=== PATIENT | female | born 2000 | race Two or more races ===

== ENCOUNTER 2025-02-13 18:08 | Outpatient (REF) | payer MEDICAID, SELFPAY ==
--- OUTSIDE RECORDS SUMMARY | 2025-02-13 14:45 | XMS_ITS | Encounter Summary ---
Author Organization [employer] Address [address] [place] [address] Care Team Providers Care Regrind Mill Operator Name Role Phone GianlucaTanishaEmilie CHW Unavailable Unavailab Kasia Huynh NP Primary Care Provider [phone] Reason for Referral * Consultation (Routine) - Authorized Specialty Diagnoses / Procedures Referred By Contac t Referred To Contact Nutrition Diagnoses Obesity, Class III, BMI 40-49.9 (morbid obesity) (HCC) Kasia Loja NP [address] [place] [address] Phone: tel: fax: Referral ID Status Reason Start Date Expiration Date Visits Requested Visits Authorized [id number] Authorized Consult and Treat 02/13/2025 02/13/2026 1 1 Encounter Details Date Type Department Care Team (Late st Contact Info) Description 02/13/2025 2:45 PM EST Office Visit [facility] [address] [place] [address] [phone] Kasia Loja NP [address] [place] [address] [phone] Healthcare maintenance (Primary Dx); Diabetes mellitus screening; Obesity, Class III, BMI 40-49.9 (morbid obesity) (HCC); Encounter for immunization; Routine screening for STI (sexually transmitted infection); Sore throat Social History Tobacco Use Types Packs/Day Years Used Date Smoking Tobacco: Never Passive Smoke Exposure: Never Smokeless Tobacco: Never Alcohol Use Standard Drinks/Week Comments Never 0 (1 standard drink = 0.6 oz pur e alcohol) Alcohol Answer Date Recorded How often do you have a drink containing alcohol ? 0 04/04/2024 How many drinks containing a lcohol do you have on a typical day when you are drinking? 0 04/04/2024 How often do you have six or more drinks on one occasion? 0 04/04/2024 Depression Answer Date Recorded Patient Health Questionnaire-9 Score 0 02/13/2025 Patient Health Questionnaire-9 Score 0 02/13/2025 Last PHQ-9: Questionnaire Data Not on file 1 04/15/2024 Housing Stability Answer Date Recorded What is your housing situation today? I have dena armstrong 04/04/[address] you li ve. Do you have problems with any of the following? None of the above 04/04/2024 Food Insecurity Answer Date Recorded Within the past 12 months, y ou worried that your food would run out before you got money to buy more: Never True 02/13/2025 Within the past 12 months,th e food you bought just didn't last and you didn't have enough money to get more: Never True Transportation Answer Date Recorded In the past 12 months, has l ack of transportation kept you from medical appts, meetings, work or from getting things needed for daily living? No 04/04/2024 Intimate Partner Violence Answer Date R ecorded Within the last year, have y ou been afraid of your partner or ex-partner? 2 04/04/2024 Within the last year, have y ou been humiliated or emotionally abused in other ways by your partner or ex-partner? 2 Within the last year, have y ou been kicked, hit, slapped, or otherwise physically hurt by your partner or ex-partner? 2 04/04/2024 Within the last year, have y ou been raped or forced to have any kind of sexual activity by your partner or ex-partner? 2 04/04/2024 Utilities Answer Date Recorded In the past 12 months, has t he electric, gas, oil or water company threatened to shut off services in your home? No 02/13/2025 Depression Answer Date Recorded Patient Health Questionnaire-2 Score 0 02/13/2025 Internet Access Answer Date Recorded Internet Access Q1 Yes 04/04/2024 Internet Access Q2 Not on file 04/04/2024 Education Answer Date Recorded What is the highest level of school you have completed or the highest degree you have received? 8th grade 04/04/2024 Comments Unknown Sex and Gender Information Value Date Recorded Sex Assigned at Female 02/01/2024 8:18 AM EST Legal Sex Female 6:59 PM EDT Gender Identity Female 07/01/2023 6:59 PM EDT Sexual Orientation Straight 07/01/2023 6: 59 PM EDT Occupation Industry Job Start Date Job End Date Not on file Not on file Not on file Not on file documented as of this encounter Last Filed Vital Signs Vital Sign Reading Time Taken Comments Blood Pressure 140/88 02/13/2025 3:10 PM EST Pulse 92 02/13/2025 3:10 PM EST Temperature 37 C (98.6 F) 02/13/2025 3:10 PM EST Respiratory Rate 18 02/13/2025 3:10 PM EST Oxygen Saturation 99% 02/13/2025 3:10 PM EST Inhaled Oxygen Concentration - - Weight 110 kg (242 lb 6 oz) 02/13/2025 3:[address] Height 156.3 cm (5' 1.52 ) 02/13/2025 3:10 PM ES T Body Mass Index 45.03 02/13/2025 3:10 PM EST documented in this encounter Functional Status * Over the past 2 weeks, how often have you been bothered by any of the following problems? Question Answer Date of Assessment Author Patient Health Questionnaire -2 Score 0 02/13/2025 3:13 PM EST Jodie Laws MA * Little interest or pleasure in doing things Answer Date of Assessment Author Not at all 02/13/2025 3:13 PM EST Jodie Salinas MA * Feeling down, depressed, or hopeless Answer Date of Assessment Author Not at all 02/13/2025 3:13 PM EST Jodie Salinas MA * Trouble falling or staying asleep, or sleeping too much Answer Date of Assessment Author Not at all 02/13/2025 3:13 PM EST Jodie Salinas MA * Feeling tired or having little energy Answer Date of Assessment Author Not at all 02/13/2025 3:13 PM EST Jodie Salinas MA * Poor appetite or overeating Answer Date of Assessment Author Not at all 02/13/2025 3:13 PM Jodie Bonner MA * Feeling bad about yourself - or that you are a failure or have let yourself or your family down Answer Date of Assessment Author Not at all 02/13/2025 3:13 PM Jodie Bonner MA * Trouble concentrating on things, such as reading the newspaper or watching television Answer Date of Assessment Author Not at all 02/13/2025 3:13 PM Jodie Bonner MA * Moving or speaking so slowly that other people could have noticed? Or the opposite - being so fidgety or restless that you have been moving around a lot more than usual. Answer Date of Assessment Author Not at all 02/13/2025 3:13 PM Jodie Bonner MA * Thoughts that you would be better off or hurting yourself in some way Answer Date of Assessment Author Not at all 02/13/2025 3:13 PM Jodie Bonner MA * Patient Health Questionnaire-9 Score Answer Date of Assessment Author 0 02/13/2025 3:13 PM Jodie Bonner MA * Over the last 2 weeks, how often have you been bothered by any of the following problems? Question Answer Date of Assessment Author Feeling nervous, anxious, or on edge 0 02/13/2025 3:13 PM Jodie Meneses MA Not being able to stop or control worrying 0 02/13/2025 3:13 PM Jodie Meneses MA Worrying too much about different things 0 02/13/2025 3:13 PM Jodie Meneses MA Trouble relaxing 0 02/13/2025 3:13 PM Jodie Jimenez MA Being so restless that it is hard to sit still 0 02/13/2025 3:13 PM Jodie Meneses MA Becoming easily annoyed or irritable 0 02/13/2025 3:13 PM Jodie Meneses MA Feeling afraid as if somethi ng awful might happen 0 02/13/2025 3:13 PM EST Jodie Laws MA KIAN-7 Total Score 0 02/13/2025 3:13 PM EST Jodie Laws MA documented as of this encounter Miscellaneous Notes * Assessment & Plan Note - Kasia Loja NP - 02/13/2025 2:45 PM ESTAssociated Problem(s): Obesity, Class III, BMI 40-49.9 (morbid obesity) (HCC) Currently seeing engineering illustrator at [facility] [place]. Placed referral for nutrition here due to proximity. Orders: Referral to Nutrition Therapy; Future documented in this encounter Plan of Treatment Scheduled Orders Name Type Priority Associated Diagnoses Orde r Schedule Chlamydia/N. Gonorrhoeae, PCR, Urine Lab Routine Routine screening for STI (sexually transmitted infection) Ordered: 02/13/2025 Hepatitis B Core Antibody, Total Lab Routine Routine screening for STI (sexually transmitted infection) Expected: 02/13/2025 (Approximate), Expires: 02/13/2026 Hepatitis B Surface Antibody, Qualitative Lab Routine Routine screening for STI (sexually transmitted infection) Expected: 02/13/2025 (Approximate), Expires: 02/13/2026 Hepatitis B surface antigen, EIA Lab Routine Routine screening for STI (sexually transmitted infection) Expected: 02/13/2025 (Approximate), Expires: 02/13/2026 Hepatitis C Antibody with Reflex to HCV, RNA, Quantitative, Real-Time PCR Lab Routine Routine screening for STI (sexually transmitted infection) Expected: 02/13/2025 (Approximate), Expires: 02/13/2026 HIV-1/2 Antigen and Antibodies, Fourth Generation, with Reflexes Lab Routine Routine screening for STI (sexually transmitted infection) Expected: 02/13/2025 (Approximate), Expires: 02/13/2026 Syphilis Screen Lab Routine Routine screening for STI (sexually transmitted infection) Expected: 02/13/2025 (Approximate), Expires: 02/13/2026 Lipid Panel, Standard Lab Routine Healthcare maintenance Expected: 02/13/2025 (Approximate), Expires: 02/13/2026 Comprehensive Metabolic Panel Lab Routine Healthcare maintenance Expected: 02/13/2025 (Approximate), Expires: 02/13/2026 CBC auto differential Lab Routine Healthcare maintenance Expected: 02/13/2025 (Approximate), Expires: 02/13/2026 TSH W/Reflex to FT4 Lab Routine Healthcare maintenance Expected: 02/13/2025 (Approximate), Expires: 02/13/2026 Hemoglobin A1c Lab Routine Diabetes mellitus screening Expected: 02/13/2025 (Approximate), Expires: 02/13/2026 Scheduled Referrals Name Type Priority Associated Diagnoses Orde r Schedule Referral to Nutrition Therapy Outpatient Referral Routine Obesity, Class III, BMI 40-49.9 (morbid obesity) ([facility]) Expected: 02/13/2025 (Approximate), Expires: 02/13/2026 documented as of this encounter Procedures Procedure Name Priority Date/Time Associated Diagnosis Comments POC BANUELOS ID NOW STREP A Routine 02/13/2025 4:04 PM EST Sore throat documented in this encounter Results * POCT Rapid Strep A BANUELOS ID NOW (02/13/2025 4:04 PM EST) Pathologist [facility] Rapid Strep A Screen Negative Negative, None Detected QC Media Lot # [id number] Lot# Expiration Date , Swab 02/13/2025 4:04 PM EST Ksaia Loja NP POINT OF CARE TEST ENTER/EDIT O RDERABLES Final Result documented in this encounter Visit Diagnoses Diagnosis Healthcare maintenance- Primary Diabetes mellitus screening Screening for diabetes mellitus Obesity, Class III, BMI 40-49.9 (morbid obesity) (HCC) Encounter for immunization Routine screening for STI (sexually transmitted infection) Screening examination for venereal disease Sore throat Acute pharyngitis documented in this encounter Additional Health Concerns Assessment Noted Time PHQ-9 Depression Total Score: 0 02/14/20 25 3:13 PM EST documented as of this encounter Care Teams Regrind Mill Operator Relationship Specialty Start Date End Date Kasia Loja, DRAKE [address] [place] [id number] PCP - General Nurse Practitioner 02/13/25 Emilie Hough, CHW Community Health Worker Community Health Worker 04/04/24 documented as of this encounter
--- OUTSIDE RECORDS SUMMARY | 2025-02-13 18:12 | XMS_ITS | Encounter Summary ---
Author Organization [facility] Address [address] [place] [address] Care Team Providers Care Heating Technician Name Role Phone [facility] Primary Care Provider Encounter Details Date Type Department Care Team (Late st Contact Info) Description 04/05/2024 Community Orders [facility] EpicCare Link [address] [place] [address] Nichol Tee MD [address] [place] [address] with uncertain viability, fetus 1 (Primary Dx); Encounter for anatomic survey Social History Tobacco Use Types Packs/Day Years Used Date Smoking Tobacco: Never Smokeless Tobacco: Never Alcohol Use Standard Drinks/Week Comments Never 0 (1 standard drink = 0.6 oz pur e alcohol) Comments No Sex and Gender Information Value Date Recorded Sex Assigned at Female 06/23/2023 12:13 PM EDT Legal Sex Female 8:23 AM EDT Gender Identity Not on file Sexual Orientation Not on file documented as of this encounter Plan of Treatment Not on file documented as of this encounter Results * Due to [place] state law, this organization might not be sharing negative HIV tests. * US OB MFM (07/12/2024 3:52 PM EDT) Anatomical Region Laterality Modality Body, Pelvis N/A Ultrasound 07/12/2024 3:48 PM EDT Impressions 07/12/2024 4:13 PM EDT The patient was referred for an anatomic survey. [employer] services was used for today's visit given the language barrier (278608). IMPRESSION: Transabdominal ultrasound performed. Viable, nava intrauterine gestation. Size consistent with dates. Normal placentation without previa. Long, closed cervix without funneling. All views required for targeted exam using the AIUM protocol attempted. Views obtained are documented above. If views were not obtained, it was due to position, gestational age, or other technical reasons unless otherwise noted. Anatomic survey within normal limits, no structural anomalies are detected. Normal-appearing uterus and adnexa. COUNSELING We reviewed the limitations of ultrasound in the detection of structural anomalies; some anomalies may be missed and others may not present until later in gestation. We also reviewed its limitations in the detection of aneuploidy and the availability of amniocentesis, which she declined. Thank you for involving us in the care of this patient. Please do not hesitate to contact us with any questions or concerns. Narrative 07/12/2024 4:13 PM EDT OBSTETRICS REPORT (Signed Final 07/12/2024 04:13 pm) PATIENT INFO: ID #: [id number] : [birth year] (23 yrs)(F) Name: GILMER FRANCO Visit Date: 07/12/2024 03:48 pm MANUEL PERFORMED BY: Attending: Eliazar Alejandro MD Performed By: Luisa Lomax Referred By: NICHOL TEE Location: [facility] Diagnosis and O SERVICE(S) PROVIDED: Targeted exam 42839 INDICATIONS: 20 weeks gestation of Z3A.20 Obesity in , 2nd tri O99.212 Screening for malformations Z36.3 GESTATIONAL AGE: LMP: 26w 0d Date: 01/12/24 NAJMA: 10/18/24 U/S Today: 20w 3d NAJMA: 11/26/24 Best: 20w 1d Det. By: U/S Zakia Oscar L NAJMA: 11/28/24 (04/06/24) EVALUATION: Num Of Fetuses: 1 Heart Rate(bpm): 158 Cardiac Activity: Seen Presentation: Cephalic Placenta: Anterior No Previa P. Cord Insertion: Normal Amniotic Fluid HUMPHREY FV: Normal Largest Pocket(cm) 4.94 BIOMETRY: BPD: 47.6 mm G.Age: 20w 3d HC: 175.3 mm G.Age: 20w 0d AC: 150.1 mm G.Age: 20w 2d FL: 34.3 mm G.Age: 20w 6d HUM: 35.1 mm G.Age: 22w 0d CER: 19.1 mm G.Age: 18w 4d NFT: 3.89 mm LV: 7.1 mm CM: 3.2 mm CI: 74.31 % 70 - 86 FL/HC: 19.6 % 16.8 - 19.8 HC/AC: 1.17 1.09 - 1.39 FL/BPD: 72.1 % FL/AC: 22.9 % 20 - 24 Est. FW: 355 gm 0 lb 13 oz TARGETED ANATOMY: Central Nervous System Calvarium/Cranial V.: Normal Cavum: Normal Lateral Ventricles: Normal Choroid Plexus: Normal Cereb./Vermis: Normal Cisterna Magna: Normal Midline Falx: Normal Spine Cervical: Normal Thoracic: Normal Lumbar: Normal Sacral: Normal Shape/Curvature: Normal Head/Neck Face: Normal Lips: Normal Neck: Normal Nuchal Fold: Normal Nasal Bone: Normal Profile: Normal Orbits/Eyes: Normal Mandible: Normal Maxilla: Normal Thorax 4 Chamber View: Normal Cardiac Activity: Observed Cardiac Situs: Normal Rt Outflow Tract: Normal Lt Outflow Tract: Normal Aortic Arch: Normal Ductal Arch: Normal SVC: Normal Diaphragm: Normal 3 Vessel View: Normal 3 V Trachea View: Normal IVC: Normal Abdomen Ventral Wall: Normal Situs: Normal Stomach: Normal Liver: Normal Lt Kidney: Normal Rt Kidney: Normal Bladder: Normal Bowel: Normal Extremities Lt Humerus: Normal Rt Humerus: Normal Lt Forearm: Normal Rt Forearm: Normal Lt Hand: Normal Rt Hand: Normal Lt Femur: Normal Rt Femur: Normal Lt Lower Leg: Normal Rt Lower Leg: Normal Lt Foot: Normal Rt Foot: Normal Other Umbilical Cord: Normal 3-vessel Genitalia: Normal CERVIX UTERUS ADNEXA: Cervix Length: 4.2 cm. Cul De Sac No fluid noted Adnexa Both adnexae appeared unremarkable. Comment Uterus and adnexa appear unremarkable. Eliazar Alejandro MD Electronically Signed Final Report 07/12/2024 04:13 pm Procedure Note Eliazar Alejandro MD - 07/12/2024 OBSTETRICS REPORT (Signed Final 07/12/2024 04:13 pm) PATIENT INFO: ID #: [id number] : [birth year] (23 yrs)(F) Name: GILMER FRANCO Visit Date: 07/12/2024 03:48 pm JACKSON PERFORMED BY: Attending: Eliazar Alejandro MD Performed By: Luisa Lomax Referred By: NICHOL TEE Location: [facility] Diagnosis and O SERVICE(S) PROVIDED: Targeted exam 13281 INDICATIONS: 20 weeks gestation of Z3A.20 Obesity in , 2nd tri O99.212 Screening for malformations Z36.3 GESTATIONAL AGE: LMP: 26w 0d Date: 01/12/24 NAJMA: 10/18/24 U/S Today: 20w 3d NAJMA: 11/26/24 Best: 20w 1d Det. By: U/Anival Vizcaino NAJMA: 11/28/24 (04/06/24) EVALUATION: Num Of Fetuses: 1 Heart Rate(bpm): 158 Cardiac Activity: Seen Presentation: Cephalic Placenta: Anterior No Previa P. Cord Insertion: Normal Amniotic Fluid HUMPHREY FV: Normal Largest Pocket(cm) 4.94 BIOMETRY: BPD: 47.6 mm G.Age: 20w 3d HC: 175.3 mm G.Age: 20w 0d AC: 150.1 mm G.Age: 20w 2d FL: 34.3 mm G.Age: 20w 6d HUM: 35.1 mm G.Age: 22w 0d CER: 19.1 mm G.Age: 18w 4d NFT: 3.89 mm LV: 7.1 mm CM: 3.2 mm CI: 74.31 % 70 - 86 FL/HC: 19.6 % 16.8 - 19.8 HC/AC: 1.17 1.09 - 1.39 FL/BPD: 72.1 % FL/AC: 22.9 % 20 - 24 Est. FW: 355 gm 0 lb 13 oz TARGETED ANATOMY: Central Nervous System Calvarium/Cranial V.: Normal Cavum: Normal Lateral Ventricles: Normal Choroid Plexus: Normal Cereb./Vermis: Normal Cisterna Magna: Normal Midline Falx: Normal Spine Cervical: Normal Thoracic: Normal Lumbar: Normal Sacral: Normal Shape/Curvature: Normal Head/Neck Face: Normal Lips: Normal Neck: Normal Nuchal Fold: Normal Nasal Bone: Normal Profile: Normal Orbits/Eyes: Normal Mandible: Normal Maxilla: Normal Thorax 4 Chamber View: Normal Cardiac Activity: Observed Cardiac Situs: Normal Rt Outflow Tract: Normal Lt Outflow Tract: Normal Aortic Arch: Normal Ductal Arch: Normal SVC: Normal Diaphragm: Normal 3 Vessel View: Normal 3 V Trachea View: Normal IVC: Normal Abdomen Ventral Wall: Normal Situs: Normal Stomach: Normal Liver: Normal Lt Kidney: Normal Rt Kidney: Normal Bladder: Normal Bowel: Normal Extremities Lt Humerus: Normal Rt Humerus: Normal Lt Forearm: Normal Rt Forearm: Normal Lt Hand: Normal Rt Hand: Normal Lt Femur: Normal Rt Femur: Normal Lt Lower Leg: Normal Rt Lower Leg: Normal Lt Foot: Normal Rt Foot: Normal Other Umbilical Cord: Normal 3-vessel Genitalia: Normal CERVIX UTERUS ADNEXA: Cervix Length: 4.2 cm. Cul De Sac No fluid noted Adnexa Both adnexae appeared unremarkable. Comment Uterus and adnexa appear unremarkable. Eliazar Alejandro MD Electronically Signed Final Report 07/12/2024 04:13 pm IMPRESSION: The patient was referred for an anatomic survey. [employer] services was used for today's visit given the language barrier ([id number]). IMPRESSION: Transabdominal ultrasound performed. Viable, nava intrauterine gestation. Size consistent with dates. Normal placentation without previa. Long, closed cervix without funneling. All views required for targeted exam using the AIUM protocol attempted. Views obtained are documented above. If views were not obtained, it was due to position, gestational age, or other technical reasons unless otherwise noted. Anatomic survey within normal limits, no structural anomalies are detected. Normal-appearing uterus and adnexa. COUNSELING We reviewed the limitations of ultrasound in the detection of structural anomalies; some anomalies may be missed and others may not present until later in gestation. We also reviewed its limitations in the detection of aneuploidy and the availability of amniocentesis, which she declined. Thank you for involving us in the care of this patient. Please do not hesitate to contact us with any questions or concerns. us Nichol Tee MD IMG OB US PROCEDURES F inal Result documented in this encounter Visit Diagnoses Diagnosis with uncertain viability, fetus 1 (HCC)- Primary Encounter for anatomic survey (HCC) Encounter for anatomic survey Encounter for anatomic survey (HCC) Encounter for anatomic survey 20 weeks gestation of (HCC) Obesity complicating , second trimester ([facility]) Encounter for screening for malformations (HCC) documented in this encounter Care Teams Heating Technician Relationship Specialty Start Date End Date [facility] [address] [place] [id number] PCP - General Family Medicine 06/23/23 documented as of this encounter
--- OUTSIDE RECORDS SUMMARY | 2025-02-13 18:12 | XMS_ITS | Encounter Summary ---
Author Organization [employer] Address [address] [place] [address] Care Team Providers Care News Producer Name Role Phone Tobin Deborah Keen DNP Primary Care Provider + Emilie Hough CHW Unavailable Unavailab Kasia Huynh TOPLINE BEADING MACHINE TENDER Primary Care Provider [phone] Encounter Details Date Type Department Care Team (Late st Contact Info) Description 04/06/2024 Orders Only [address] [id number] Susie Chavira RN Social History Tobacco Use Types Packs/Day Years [...] more drinks on one occasion? 0 04/04/2024 Housing Stability Answer Date Recorded What is your housing situation today? I have dena armstrong 04/04/[address] you li ve. Do you have problems with any of the following? None of the above 04/04/2024 Food Insecurity Answer Date Recorded Within the past 12 months, y ou worried that your food would run out before you got money to buy more: Often true 04/04/2024 Within the past 12 months,th e food you bought just didn't last and you didn't have enough money to get more: Often true Transportation Answer Date Recorded In the past [...] to shut off services in your home? Yes 04/04/2024 Internet Access Answer Date Recorded Internet Access Q1 Yes 04/04/2024 Internet Access Q2 Not on file 04/04/2024 Education Answer Date Recorded What is the highest level of school you have completed or the highest degree you have received? 8th grade 04/04/2024 Comments Yes Sex and Gender Information Value Date Recorded Sex Assigned at Female 02/01/2024 8:18 AM EST Legal Sex Female 6:59 PM EDT Gender Identity Female 07/01/2023 6:59 PM EDT Sexual Orientation Straight 07/01/2023 6 :59 PM EDT Occupation Industry Job Start Date Job End Date Not on file Not on file Not on file Not on file documented as of this encounter Plan of Treatment Not on file documented as of this encounter Visit Diagnoses Not on filedocumented in this encounter Care Teams News Producer Relationship Specialty Start Date End Date Deborah Rudd DNP PCP - General Family Medicine 08/29/23 02/12/25 Kasia Loja NP [address] [place] [address] PCP - General Nurse Practitioner 02/13/25 Emilie Hough, CHW Community Health Worker Community Health Worker 04/04/24 documented as of this encounter
--- OUTSIDE RECORDS SUMMARY | 2025-02-13 18:12 | XMS_ITS | Encounter Summary ---
Author Organization [facility] Address [address] [place] [address] Care Team Providers Care Hand Rounder Name Role Phone [facility] Primary Care Provider Reason for Visit * Reason Onset Date Comments PAC Patient Request Call Back 10/01/2024 PAC Appt Request - Established 10/01/2024 Encounter Details Date Type Department Care Team (Late st Contact Info) Description 10/01/2024 Telephone [facility] Ultrasound [address] [place] [address] Telephone Intake, Staff PAC Patient Request Call Back; PAC Appt Request - Established Social History Tobacco Use Types Packs/Day Years [...] on file documented as of this encounter Miscellaneous Notes * Telephone Encounter - Yola Rose - 10/01/2024 2:09 PM EDT Pt is calling she needs after 2pm in the day on any other day then 10/03 please call pt back using track and field coach documented in this encounter Plan of Treatment Not on file documented as of this encounter Visit Diagnoses Not on filedocumented in this encounter Care Teams Hand Rounder Relationship Specialty Start Date End Date [facility] [address] [place] [address] PCP - General Family Medicine 06/23/23 documented as of this encounter
--- OUTSIDE RECORDS SUMMARY | 2025-02-13 18:12 | XMS_ITS | Clinical Summary ---
Author Organization [facility] Address [address] [place] [address] Phone Care Team Providers Care Head Of Human Resources Name Role Phone Unknown, Unknown Primary Care Provider Andrzej ansari Allergies No known active allergies Medications ibuprofen (ADVIL,MOTRIN) 800 MG tablet Take 1 tablet (800 mg total) by mouth every 8 (eight) hours as needed for pain (specific location in comments). 30 tablet 06/23/2020 Active Active Problems Problem Noted Date Diagnosed Date Encounter to establish care 08/20/2020 Assessment & Plan (08/21/2020 7:14 AM EDT): Patient did not have a PCP before. Patient will get her health records from [facility]. News Commentator: . Menses: Regular. LMP: 8 days ago. Sexually active: Yes, with a male partner for 2 years. Contraception: OCP for the past 3 months which she got from [facility]. Patient lives in [place] right now and would like to find a doctor there. The patient wanted to know if we could give her a prescription for control or start her control here until she finds a doctor locally. Patient s goal is to find a doctor locally and not be seen here in [place]. Discussed contraceptive management. Patient would like to continue taking the OCPs. Recommended the patient to contact her insurance to inquire w/ them which clinics or physicians would be covered locally. She may then contact the clinics/physicians to make an appointment w/ them as I think she will get a sooner appointment w/ them than us. The patient will contact this office to let us know if she was able to find a doctor locally and get an appointment and will not be coming here to the center. Medication monitoring: Not on any daily medications. Followup: Will schedule a f/u appointment. The patient will contact this office with any questions or concerns. All questions answered and concerns addressed. The patient understands and agrees with the plan. Family History Medical History Relation Comments Diabetes Mother Cancer Neg Hx Relation Status Comments Mother Alive Social History Tobacco Use Types Packs/Day Years Used Date Smoking Tobacco: Never Smokeless Tobacco: Never Alcohol Use Standard Drinks/Week Comments Never 0 (1 standard drink = 0.6 oz pur e alcohol) Education Answer Date Recorded Are you interested in more education? Not on david e 07/16/2022 Are you concerned about learning? Not on file 07/16/2022 No 07/16/2022 No 07/16/2022 Digital Access Answer Date Recorded No 08/14/2022 No 08/14/2022 Reliable internet access at home? Not on file 08/14/2022 Device with a working camera? Not on file Intimate Partner Violence Answer Date R ecorded Denied Basic Needs Not on file 02/01/2023 In the past 12 months have y ou been in a relationship with a person who hurts, threatens, or tries to control you? No 02/01/2023 Worried food would run out Not on file 02/01 In the past 12 months have y ou been in a relationship with a person who hurts, threatens, or tries to control you? No 02/01/2023 Comments Unknown Sex and Gender Information Value Date Recorded Sex Assigned at Female 06/18/2020 10:32 AM EDT Legal Sex Female 10:09 AM EDT Gender Identity Female 06/18/2020 10:32 AM EDT Sexual Orientation Straight 06/18/2020 10 :32 AM EDT Last Filed Vital Signs Vital Sign Reading Time Taken Comments Blood Pressure 139/75 06/23/2020 7:43 PM EDT Pulse 107 06/23/2020 7:43 PM EDT Temperature 36.1 C (97 F) 06/23/2020 7:43 PM EDT Respiratory Rate 20 06/23/2020 7:43 PM EDT Oxygen Saturation 98% 06/23/2020 6:57 PM EDT Inhaled Oxygen Concentration - - Weight - - Height - - Body Mass Index - - Plan of Treatment Health Maintenance Due Date Last Done Comments Adult Td,Tdap Booster 1998 HPV VACCINES (1 - 3-dose series) 2013 HEPATITIS C SCREENING 2016 HIV ONE-TIME SCREENING (18-6 5 YEARS) 2016 PAP SMEAR 11/26/2019 DEPRESSION SCREENING 02/02/2024 02/01/2023 INFLUENZA VACCINE (#1) 2024 COVID-19 VACCINE (3 - 2024-2 6 season) 2024 11/28/2020, 11/07/2020 SMOKING STATUS SCREENING (On ce After 26 Yrs) 2024 HEPATITIS A VACCINES Aged Out No long er eligible based on patient's age to complete this topic HIB VACCINES Aged Out No longer eligi ble based on patient's age to complete this topic MENINGOCOCCAL VACCINES (ACWY) Aged Out No longer eligible based on patient's age to complete this topic MENINGOCOCCAL VACCINES (B) Aged Out N o longer eligible based on patient's age to complete this topic PNEUMOCOCCAL VACCINES (0-49 years) Aged Out No longer eligible b ased on patient's age to complete this topic Medical Devices Not on file Insurance HEALTH SAFETY [place] [address] [place] [address] [employer] [place] [facility] [employer] [facility] FULL [place] [employer] [place] [facility] NET FULL [facility] [place] [facility] HEALTH SAFETY NET FULL [employer] HEALTH SAFETY NET FULL Member Subscriber Plan / Payer (Ef fective 2020-Present) Name:Jaclyn Camposjerel Beth Maggie Relation to Subscriber:Self Name:Beth Lr Maggie Payer ID:Not on file Group ID:Not on file Type:Medicaid Address: [address] [employer] HEALTH SAFETY NET FULL Member Subscriber Plan / Payer (Ef fective 2020-Present) Name:Beth Lr Relation to Subscriber:Self Name:Beth Lr Payer ID:Not on file Group ID:Not on file Type:Medicaid Address: [address] ACO Member Subscriber Plan / Payer ( fective 2020-Present) Name:Beth Lr Relation to Subscriber:Self Name:Beth Lr Payer ID:Not on file Group ID:Not on file Type:Medicaid Address: [address] [employer] HEALTH SAF[employer] NET FULL [employer] ACO Care Teams Head Of Human Resources Relationship Specialty Start Date End Date Unknown, Unknown, PCP - General 03/05/23 Additional Source Comments The information contained in this document represents components of the legal health record. It is not the complete legal health record.[facility]
--- OUTSIDE RECORDS SUMMARY | 2025-02-13 18:12 | XMS_ITS | Encounter Summary ---
Author Organization [facility] Address [address] [place] [address] Care Team Providers Care Gold Layer Name Role Phone [facility]ly [facility] Primary Care Provider Encounter Details Date Type Department Care Team (Late st Contact Info) Description 07/13/2024 Community Orders [facility] EpicCare Link [address] [place] [address] Nichol Tee MD [address] [place] [address] Third trimester (HCC) (Primary Dx) Social History Tobacco Use Types Packs/Day Years [...] of this encounter Results * Due to [place] state law, this organization might not be sharing negative HIV tests. * US OB MFM (10/11/2024 4:10 PM EDT) Anatomical Region Laterality Modality Body, Pelvis N/A Ultrasound 10/11/2024 4:04 PM EDT Impressions 10/11/2024 4:17 PM EDT Patient presents for estimated weight and BPP in the setting of increased BMI. Today the growth is appropriate, the BPP is reassuring and the amniotic fluid volume is normal. Narrative 10/11/2024 4:17 PM EDT OBSTETRICS REPORT (Signed Final 10/11/2024 04:17 pm) PATIENT INFO: ID #: [id number] : [birth year] (23 yrs)(F) Name: GILMER FRANCO Visit Date: 10/11/2024 04:04 pm MANUEL PERFORMED BY: Attending: Paula Rowland MD Performed By: Poncho Henning RDMS Referred By: NICHOL TEE Location: [facility] Diagnosis and O SERVICE(S) PROVIDED: Follow-up exam 62904 BPP withOUT NST 21621 INDICATIONS: 33 weeks gestation of Z3A.33 Obesity in , 3rd tri O99.213 GESTATIONAL AGE: LMP: 39w 0d Date: 01/12/24 NAJMA: 10/18/24 U/S Today: 34w 1d NAJMA: 11/21/24 Best: 33w 1d Det. By: U/Anival Vizcaino NAJMA: 11/28/24 (04/06/24) EVALUATION: Num Of Fetuses: 1 Heart Rate(bpm): 144 Cardiac Activity: Seen Presentation: Cephalic Placenta: Anterior Amniotic Fluid HUMPHREY FV: Normal HUMPHREY Sum(cm) Largest Pocket(cm) 13.07 5.23 RUQ(cm) RLQ(cm) LUQ(cm) LLQ(cm) 0 3.75 5.23 4.09 BIOPHYSICAL EVALUATION: Amniotic F.V: Normal F. Tone: Present F. Movement: Present Score: 8/8 F. Breathing: Present BIOMETRY: BPD: 81.9 mm G.Age: 32w 6d 33 % OFD: 113.6 mm HC: 317.5 mm G.Age: 35w 5d 87 % AC: 300.4 mm G.Age: 34w 0d 76 % FL: 65.8 mm G.Age: 33w 6d 83 % HUM: 59 mm G.Age: 34w 1d 81 % LV: 4.9 mm CI: 72.1 % 70 - 86 FL/HC: 20.7 % 19.9 - 21.5 HC/AC: 1.06 0.96 - 1.11 FL/BPD: 80.3 % 71 - 87 FL/AC: 21.9 % 20 - 24 Est. FW: 2336 gm 5 lb 2 oz 79 % ANATOMY: Cranium: Normal Cavum: Normal Ventricles: Normal Posterior Fossa: Normal Heart: Normal Diaphragm: Normal Stomach: Normal Kidneys: Normal Bladder: Normal Other: A full anatomical study was previously performed. CERVIX UTERUS ADNEXA: Cervix Not seen transabdominally. Right Ovary Not visualized due to overlying bowel. Left Ovary Not visualized due to overlying bowel. Adnexa Both adnexae appeared unremarkable. COMMENTS: Approach: Transabdominal Paula Rowland MD Electronically Signed Final Report 10/11/2024 04:17 pm Procedure Paula Ferrera MD - 10/11/2024 OBSTETRICS REPORT (Signed Final 10/11/2024 04:17 pm) PATIENT INFO: ID #: [id number] : [birth year] (23yrs)(F) Name: GILMER FRANCO Visit Date: 10/11/2024 04:04 pm MANUEL PERFORMED BY: Attending: Paula Rowland MD Performed By: Poncho Henning RDMS Referred By: NICHOL TEE Location: [facility] Diagnosis and O SERVICE(S) PROVIDED: Follow-up exam 92367 BPP withOUT NST 82180 INDICATIONS: 33 weeks gestation of Z3A.33 Obesity in , 3rd tri O99.213 GESTATIONAL AGE: LMP: 39w 0d Date: 01/12/24 NAJMA: 10/18/24 U/S Today: 34w 1d NAJMA: 11/21/24 Best: 33w 1d Det. By: U/Anival Vizcaino NAJMA: 11/28/24 (04/06/24) EVALUATION: Num Of Fetuses: 1 Heart Rate(bpm): 144 Cardiac Activity: Seen Presentation: Cephalic Placenta: Anterior Amniotic Fluid HUMPHREY FV: Normal HUMPHREY Sum(cm) Largest Pocket(cm) 13.07 5.23 RUQ(cm) RLQ(cm) LUQ(cm) LLQ(cm) 0 3.75 5.23 4.09 BIOPHYSICAL EVALUATION: Amniotic F.V: Normal F. Tone: Present F. Movement: Present Score: 10/26 F. Breathing: Present BIOMETRY: BPD: 81.9 mm G.Age: 32w 6d 33 % OFD: 113.6 mm HC: 317.5 mm G.Age: 35w 5d 87 % AC: 300.4 mm G.Age: 34w 0d 76 % FL: 65.8 mm G.Age: 33w 6d 83 % HUM: 59 mm G.Age: 34w 1d 81 % LV: 4.9 mm CI: 72.1 % 70 - 86 FL/HC: 20.7 % 19.9 - 21.5 HC/AC: 1.06 0.96 - 1.11 FL/BPD: 80.3 % 71 - 87 FL/AC: 21.9 % 20 - 24 Est. FW: 2336 gm 5 lb 2 oz 79 % ANATOMY: Cranium: Normal Cavum: Normal Ventricles: Normal Posterior Fossa: Normal Heart: Normal Diaphragm: Normal Stomach: Normal Kidneys: Normal Bladder: Normal Other: A full anatomical study was previously performed. CERVIX UTERUS ADNEXA: Cervix Not seen transabdominally. Right Ovary Not visualized due to overlying bowel. Left Ovary Not visualized due to overlying bowel. Adnexa Both adnexae appeared unremarkable. COMMENTS: Approach: Transabdominal Paula Rowland MD Electronically Signed Final Report 10/11/2024 04:17 pm IMPRESSION: Patient presents for estimated weight and BPP in the setting of increased BMI. Today the growth is appropriate, the BPP is reassuring and the amniotic fluid volume is normal. us Nichol Tee MD IMG OB US PROCEDURES F inal Result documented in this encounter Visit Diagnoses Diagnosis Third trimester (HCC)- Primary state, incidental Third trimester (HCC) state, incidental 33 weeks gestation of (HCC) Obesity complicating , third trimester (HCC) documented in this encounter Care Teams Gold Layer Relationship Specialty Start Date End Date [facility] [address] [place] [address] PCP - General Family Medicine 06/23/23 documented as of this encounter
--- OUTSIDE RECORDS SUMMARY | 2025-02-13 18:12 | XMS_ITS | Encounter Summary ---
Author Organization [employer] Address [address] [place] [address] Care Team Providers Care Draw String Knotter Name Role Phone Deborah Rudd DNP Primary Care Provider + Emilie Hough CHW Unavailable Unavailab Kasia Huynh GARMENT SEWER HAND Primary Care Provider [phone] Encounter Details Date Type Department Care Team (Late st Contact Info) Description 09/09/2023 Orders Only [address] [phone] Demetria Bhatia RN Social History Tobacco Use Types Packs/Day Years Used Date Smoking Tobacco: Never Assessed Comments Unknown Sex and Gender Information Value Date Recorded Sex Assigned at Female 02/01/2024 8:18 AM EST Legal Sex Female 6:59 PM EDT Gender Identity Female 07/01/2023 6:59 PM EDT Sexual Orientation Straight 07/01/2023 6: 59 PM EDT documented as of this encounter Plan of Treatment Not on file documented as of this encounter Procedures Procedure Name Priority Date/Time Associated Diagnosis Comments PAP SMEAR Routine 08/10/2023 12:00 AM EDT documented in this encounter Results * Pap Smear (08/10/2023 12:00 AM EDT) Swab us Historical Provider LAB CYTOLOGY ORDERABLES F inal Result [facility] [address] [place] [address], documented in this encounter Visit Diagnoses Not on filedocumented in this encounter Care Teams Draw String Knotter Relationship Specialty Start Date End Date Deborah Rudd DNP PCP - General Family Medicine 08/29/23 02/12/25 Kasia Loja NP [address] [place] [address] PCP - General Nurse Practitioner 02/13/25 Emilie Hough, CHW Community Health Worker Community Health Worker 04/04/24 documented as of this encounter
--- OUTSIDE RECORDS SUMMARY | 2025-02-13 18:12 | XMS_ITS | Encounter Summary ---
Author Organization [employer] [facility] Address [address] [place] [address] 7 [place] [address] Care Team Providers Care Animal Trainer Name Role Phone Deborah Rudd DNP Primary Care Provider + Emilie Hough CHW Unavailable Unavailab Kasia Huynh BOX BLANK MACHINE OPERATOR Primary Care Provider [phone] Reason for Referral * Consultation (Routine) - Closed Specialty Diagnoses / Procedures Referred By Contac t Referred To Contact Obstetrics and Gynecology Diagnoses Third trimester Nichol Tee MD [address] [place] [phone] Phone: tel: fax: [facility] [address] [facility] 4th [address] [place], [place] Phone: tel: fax: Referral ID Status Reason Start Date Expiration Date V isits Requested Visits Authorized [id number] Closed Specialty Services Required 10/16/2024 10/16/2025 1 1 Encounter Details Date Type Department Care Team (Late st Contact Info) Description 10/16/2024 Orders Only [facility]-Whiskey Regauger [address] [place] [phone] Susie Chavira RN Third trimester Social History Tobacco Use Types Packs/Day Years [...] as of this encounter Plan of Treatment Scheduled Referrals Name Type Priority Associated Diagnoses Order Schedule Referral to Obstetrics Outpatient Referral Routine Third trimester Expected: 10/16/2024 (Approximate), Expires: 10/16/2025 documented as of this encounter Visit Diagnoses Diagnosis Third trimester state, incidental documented in this encounter Care Teams Animal Trainer Relationship Specialty Start Date End Date Deborah Rudd DNP PCP - General Family Medicine 08/29/23 02/12/25 Kasia Loja NP [address] [place] [address] PCP - General Nurse Practitioner 02/13/25 Emilie Hough, CHW Community Health Worker Community Health Worker 04/04/24 documented as of this encounter
--- OUTSIDE RECORDS SUMMARY | 2025-02-13 18:12 | XMS_ITS | Encounter Summary ---
Author Organization [employer] Address [address] [place] [address] Care Team Providers Care Rcp Name Role Phone MaryDeborah zelaya Leonila DNP Primary Care Provider + Emilie Hough CHLalito Unavailable Unavailab Kasia Huynh SENIOR MEDICAL WRITER Primary Care Provider [phone] Encounter Details Date Type Department Care Team (Late st Contact Info) Description 04/02/2024 Telephone [facility] OB-Care Companion [address] [place] [phone] Emilie Hough CHW Social History Tobacco Use Types Packs/Day Years Used Date Smoking Tobacco: Never Assessed Alcohol Answer Date Recorded How often do [...] Internet Access Q2 Not on file 04/04/2024 Comments Yes Sex and Gender Information [...] on filedocumented in this encounter Care Teams Rcp Relationship Specialty Start Date End Date Deborah Rudd DNP PCP - General Family Medicine 08/29/23 02/12/25 Kasia Loja NP [address] [place] [address] PCP - General Nurse Practitioner 02/13/25 Emilie Hough, CHW Community Health Worker Community Health Worker 04/04/24 documented as of this encounter
--- OUTSIDE RECORDS SUMMARY | 2025-02-13 18:12 | XMS_ITS | Encounter Summary ---
Author Organization [employer] Address [address] [place] [address] Care Team Providers Care Stage Setting Painter Apprentice Name Role Phone Deborah Rudd DNP Primary Care Provider + Emilie Hough Unavailable Unavailab le Reason for Visit * Reason Onset Date Comments Chart Prep 02/12/2025 Encounter Details Date Type Department Care Team ([facility] st Contact Info) Description 02/12/2025 Telephone [facility] MEDICINE [address] [place] [address] Kasia Loja, DRAKE [address] [place] [address] Chart Prep Social History Tobacco Use Types Packs/Day Years [...] you have received? 8th grade 04/04/2024 Comments No Sex and Gender Information Value [...] encounter Miscellaneous Notes * Telephone Encounter - Jodie Vinson [place] - 02/12/2025 4:11 PM EST Chart Prep Labs: done from 08/17/24 Images: done from 10/11/24 Referrals: Complete Vaccines due: Covid, Flu, and HPV Screenings: LMP and Lipid panel. Overdue care gaps: SBIRT, SDOH, PHQ-9, KIAN-7, Oral health screening, Disability screen, and Tobacco documented in this encounter Plan of Treatment Not on file documented as of this encounter Visit Diagnoses Not on filedocumented in this encounter Care Teams Stage Setting Painter Apprentice Relationship Specialty Start Date End Date Deborah Rudd DNP PCP - General Family Medicine 08/29/23 02/12/25 Emilie Hough, CHW Community Health Worker Community Health Worker 04/04/24 documented as of this encounter
--- OUTSIDE RECORDS SUMMARY | 2025-02-13 18:12 | XMS_ITS | Encounter Summary ---
Author Organization [facility] Address [address] [place] [address] Care Team Providers Care Lab Director Name Role Phone [facility] Primary Care Provider Encounter Details Date Type Department Care Team (Late st Contact Info) Description 04/03/2024 Community Orders [facility] EpicCare Link [address] [place] [address] Nichol Tee MD [address] [place] [address] First trimester (Primary Dx) Social History Tobacco Use Types [...] of this encounter Results * Due to [place] state law, this organization might not be sharing negative HIV tests. * US OB MFM (04/30/2024 3:35 PM EST) Anatomical Region Laterality Modality Body, Pelvis N/A Ultrasound 04/30/2024 3:13 PM EST Impressions 04/30/2024 3:37 PM EST The patient presented for a viability scan. IMPRESSION: Transabdominal ultrasound was performed. Single intrauterine There is an embryonic pole with heart rate of 120. [place]-rump length is consistent with prior 6-week ultrasound done in [place] not consistent with last menstrual period. Narrative 04/30/2024 3:37 PM EST OBSTETRICS REPORT (Signed Final 04/30/2024 03:37 pm) PATIENT INFO: ID #: [id number] : [birth year] (23 yrs)(F) Name: GILMER FRANCO Visit Date: 04/30/2024 03:13 pm MANUEL PERFORMED BY: Attending: Sofya Newton Performed By: Bharati Rahman RDMS Referred By: NICHOL TEE Location: [facility] Diagnosis and O SERVICE(S) PROVIDED: <14 weeks [address] INDICATIONS: 9 weeks gestation of Z3A.09 Encounter for supervision of normal preg Z34.91 Obesity in , 1st tri O99.211 GESTATIONAL AGE: LMP: 15w 4d Date: 01/12/24 NAJMA: 10/18/24 Best: 9w 5d Det. By: Tyrell Vizcaino NAJMA: 11/28/24 (04/06/24) EVALUATION: Num Of Fetuses: 1 Pole: Seen Heart Rate(bpm): 120 Cardiac Activity: Seen Presentation: Variable Placenta: Anterior P. Cord Insertion: Not visualized Amniotic Fluid HUMPHREY FV: Normal Largest Pocket(cm) 2.16 BIOMETRY: CRL: 28.1 mm G.Age: 9w 4d NAJMA: 11/29/24 ANATOMY: Other: Too early to be evaluated. CERVIX UTERUS ADNEXA: Cervix Not well seen, appears closed transabdominally. Right Ovary Size(cm) 1.69 2.73 Left Ovary Size(cm) 3.69 1.74 Sofya Newton Electronically Signed Final Report 04/30/2024 03:37 pm Procedure Note Sofya Newton MD - 04/30/2024 OBSTETRICS REPORT (Signed Final 04/30/2024 03:37 pm) PATIENT INFO: ID #: [id number] : [birth year] (23yrs)(F) Name: GILMER FRANCO Visit Date: 04/30/2024 03:13 pm JACKSON PERFORMED BY: Attending: Sofya Newton Performed By: Bharati Rahman RDMS Referred By: NICHOL TEE Location: [facility] Diagnosis and O SERVICE(S) PROVIDED: <14 weeks [address] INDICATIONS: 9 weeks gestation of Z3A.09 Encounter for supervision of normal preg Z34.91 Obesity in , 1st tri O99.211 GESTATIONAL AGE: LMP: 15w 4d Date: 01/12/24 NAJMA: 10/18/24 Best: 9w 5d Det. By: Eric/Anival Vizcaino NAJMA: 11/28/24 (04/06/24) EVALUATION: Num Of Fetuses: 1 Pole: Seen Heart Rate(bpm): 120 Cardiac Activity: Seen Presentation: Variable Placenta: Anterior P. Cord Insertion: Not visualized Amniotic Fluid HUMPHREY FV: Normal Largest Pocket(cm) 2.16 BIOMETRY: CRL: 28.1 mm G.Age: 9w 4d NAJMA: 11/29/24 ANATOMY: Other: Too early to be evaluated. CERVIX UTERUS ADNEXA: Cervix Not well seen, appears closed transabdominally. Right Ovary Size(cm) 1.69 2.73 Left Ovary Size(cm) 3.69 1.74 Sofya Newton Electronically Signed Final Report 04/30/2024 03:37 pm IMPRESSION: The patient presented for a viability scan. IMPRESSION: Transabdominal ultrasound was performed. Single intrauterine There is an embryonic pole with heart rate of 120. [place]-rump length is consistent with prior 6-week ultrasound done in [place] not consistent with last menstrual period. us Nichol Tee MD IMG OB US PROCEDURES F inal Result documented in this encounter Visit Diagnoses Diagnosis First trimester (HCC)- Primary state, incidental First trimester (HCC) state, incidental 9 weeks gestation of (HCC) Obesity complicating , first trimester (HCC) documented in this encounter Care Teams Lab Director Relationship Specialty Start Date End Date [facility] [address] [place] [phone] PCP - General Family Medicine 06/23/23 documented as of this encounter
--- OUTSIDE RECORDS SUMMARY | 2025-02-13 18:12 | XMS_ITS | Encounter Summary ---
Author Organization [facility] Address [address] [place] [address] Phone Care Team Providers Care Events Director Name Role Phone Jessy Duarte MD Primary Care Provider Unknown, Unknown Primary Care Provider Andrzej ansari Encounter Details Date Type Department Care Team (Late st Contact Info) Description 09/05/2020 Telephone [facility] [address] [facility], 1st Floor, [address] [place] [phone] Sophia Flaherty PA-C [address] [place] [address] [place] [address] [email or web address] Social History Tobacco Use Types Packs/Day Years Used Date Smoking Tobacco: Never Smokeless Tobacco: Never Alcohol Use Standard Drinks/Week Comments Never 0 (1 standard drink = 0.6 oz pur e alcohol) Comments Unknown Sex and Gender Information Value Date Recorded Sex Assigned at Female 06/18/2020 10:32 AM EDT Legal Sex Female 10:09 AM EDT Gender Identity Female 06/18/2020 10:32 AM EDT Sexual Orientation Straight 06/18/2020 10 :32 AM EDT documented as of this encounter Plan of Treatment Not on file documented as of this encounter Visit Diagnoses Not on filedocumented in this encounter Additional Health Concerns Assessment Noted Time PHQ-2 Depression Total Score: 0 08/20/19 21 2:43 PM EDT documented as of this encounter Care Teams Events Director Relationship Specialty Start Date End Date Jessy Duarte MD [address] [place] [address] [place] [address] [email or web address] PCP - General Family Medicine 06/18/20 3 Unknown, Unknown, PCP - General 03/05/23 documented as of this encounter Additional Source Comments The information contained in this document represents components of the legal health record. It is not the complete legal health record.[facility]
--- OUTSIDE RECORDS SUMMARY | 2025-02-13 18:12 | XMS_ITS | Clinical Summary ---
Author Organization [facility] Address [address] [place] [address] Care Team Providers Care Paper Cone Machine Operator Name Role Phone [facility] Primary Care Provider Allergies No known active allergies Medications cholecalcifero l (VITAMIN D3) 2,000 unit tablet Take 1 tablet by mouth once a day. 4 Active Junel FE 04/09, 28, 1 mg-20 mcg (21)/75 mg (7) per tablet Take 1 tablet by mouth once a day. Active cyanocobalamin /folic acid (vitamin R41-agxen acid) 2,500-400 mcg tablet,disinte grating Dissolve 1 tablet in the mouth once a day. 1 Active Ringer's solution,lacta rocío (lactated Ringer's, LR,) premix infusion Infuse 100 mL intravenously continuously. 250 mL 4 Active Active Problems Problem Noted Date Diagnosed Date NARAYAN (obstructive sleep apnea) 06/23/2023 Social History Tobacco Use Types Packs/Day Years Used Date Smoking Tobacco: Never Smokeless Tobacco: Never Tobacco Cessation:Counseling Given: Not Answered Alcohol Use Standard Drinks/Week Comments Never 0 (1 standard drink = 0.6 oz pur e alcohol) Comments No Sex and Gender Information Value Date Recorded Sex Assigned at Female 06/23/2023 12:13 PM EDT Legal Sex Female 8:23 AM EDT Gender Identity Not on file Sexual Orientation Not on file Last Filed Vital Signs Vital Sign Reading Time Taken Comments Blood Pressure 108/66 06/24/2023 11:00 AM EDT Pulse 108 06/24/2023 11:00 AM EDT Temperature 36.3 C (97.3 F) 06/24/2023 11:00 AM EDT Respiratory Rate 18 06/24/2023 11:00 AM EDT Oxygen Saturation 95% 06/24/2023 11:00 AM EDT Inhaled Oxygen Concentration - - Weight 111.1 kg (245 lb) 09/25/2024 2:31 PM EDT Height 150 cm (4' 11.06 ) 06/23/2023 12:49 PM ED T Body Mass Index 49.39 06/23/2023 12:49 PM EDT Plan of Treatment Health Maintenance Due Date Last Done Comments HIV Screening 1998 Varicella Vaccines (1 of 2 - 13+ 2-dose series) 11/26/2011 HPV Vaccines (1 - 3-dose series) 2013 Alcohol/Substance Use Screening 03/21/2024 Depression Screening and Follow-Up 03/21/2024 Social Drivers of Health Annual Screening 03/21/2024 Hepatitis B Vaccines (2 of 2 - CpG 2-dose series) 07/24/2024 06/26/2024 Influenza Vaccine (#1) 2024 , 12/02/2021, 01/14/2020 COVID-19 Vaccine (3 - 2024-2 6 season) 2024 11/28/2020, 11/07/2020 Pap Smear 08/09/2026 08/10/2023 DTaP,Tdap,and Td Vaccines (4 - Td or Tdap) 09/04/2034 09/04/2024, 11/04/2021, 07/24/2019 Hepatitis C Screening Completed 04/04/2024 Pneumococcal Vaccine: Pediatric (0-5 Years) and At-Risk Patients (6-50 Years) Aged Out No longer eligible based on patient's [place] [id number] [place] Advance Directives * Full Code (Latest Code Status on File) Date Activated Date Inactivated Comments 06/23/2023 5:09 PM 06/24/2023 4:35 PM Care Teams Paper Cone Machine Operator Relationship Specialty Start Date End Date [facility] [address] [place] [id number] PCP - General Family Medicine 06/23/23
--- OUTSIDE RECORDS SUMMARY | 2025-02-13 18:12 | XMS_ITS | Encounter Summary ---
Author Organization [facility] Address [address] [place] [address] Care Team Providers Care Electric Motor Analyst Name Role Phone [facility] Primary Care Provider Reason for Referral * Nutrition (Urgent) - Pending Review Specialty Diagnoses / Procedures Referred By Contac t Referred To Contact Nutrition Diagnoses Supervision of high risk , antepartum (HCC) Obesity, Class III, BMI 40-49.9 (morbid obesity) (HCC) Dana Ramos NP [address] [place] [phone] Phone: tel: fax: [facility] [address] [place] [address] Phone: tel: Referral ID Status Reason Start Date Expiration Date V isits Requested Visits Authorized [id number] Pending Review 08/23/2024 09/22/2025 6 6 Encounter Details Date Type Department Care Team (Late st Contact Info) Description 08/23/2024 Community Orders [facility] EpicCare Link [address] [place] [address] Dana Ramos NP [address] [place] [phone] Supervision of high risk , antepartum (HCC) (Primary Dx); Obesity, Class III, BMI 40-49.9 (morbid obesity) Social History Tobacco Use Types Packs/Day Years [...] Name Type Priority Associated Diagnoses Order Schedule Ambulatory Referral to Nutrition - Adult (Medical Nutrition Therapy) Outpatient Referral Routine Supervision of high risk , antepartum (HCC) Obesity, Class III, BMI 40-49.9 (morbid obesity) Expected: 08/23/2024, Expires: 08/23/2025 documented as of this encounter Visit Diagnoses Diagnosis Supervision of high risk , antepartum (HCC)- Primary Obesity, Class III, BMI 40-49.9 (morbid obesity) (HCC) documented in this encounter Care Teams Electric Motor Analyst Relationship Specialty Start Date End Date [facility] [address] [place] [id number] PCP - General Family Medicine 06/23/23 documented as of this encounter
--- OUTSIDE RECORDS SUMMARY | 2025-02-13 18:12 | XMS_ITS | Encounter Summary ---
Author Organization [employer] [facility] Address [address] [facility] 7 [place] [address] Care Team Providers Care Chemist Organic Name Role Phone Emilie Hough CHW Unavailable Unavailab Kasia Huynh VOCATIONAL TECHNICAL EDUCATION DIRECTOR Primary Care Provider [phone] Encounter Details Date Type Department Care Team (Latest Contact Info) Description 02/13/2025 Travel Social History Tobacco Use Types Packs/Day Years [...] on file documented as of this encounter Functional Status * Over the past 2 weeks, how often have you been bothered by any of the following problems? Question Answer Date of Assessment Author Patient Health Questionnaire -2 Score 0 02/13/2025 3:13 PM Jodie Meneses MA * Little interest or pleasure in doing things Answer Date of Assessment Author Not at all 02/13/2025 3:13 PM Jodie Bonner MA * Feeling down, depressed, or hopeless Answer Date of Assessment Author Not at all 02/13/2025 3:13 PM Jodie Bonner MA * Trouble falling or staying asleep, or sleeping too much Answer Date of Assessment Author Not at all 02/13/2025 3:13 PM Jodie Bonner MA * Feeling tired or having little energy Answer Date of Assessment Author Not at all 02/13/2025 3:13 PM Jodie Bonner MA * Poor appetite or overeating Answer [...] MA Trouble relaxing 0 02/13/2025 3:13 PM EST R Jodie Hernandez MA Being so restless that it is hard to sit still 0 02/13/2025 3:13 PM EST Jodie Laws MA Becoming easily annoyed or irritable 0 02/13/2025 3:13 PM EST Jodie Laws MA Feeling afraid as if somethi ng awful might happen 0 02/13/2025 3:13 PM EST Jodie Laws MA KIAN-7 Total Score 0 02/13/2025 3:13 PM Jodie Meneses MA documented as of this encounter Plan of Treatment Not on file documented as of this encounter Visit Diagnoses Not on filedocumented in this encounter Additional Health Concerns Assessment Noted Time PHQ-9 Depression Total Score: 0 02/14/20 3:13 PM EST documented as of this encounter Care Teams Chemist Organic Relationship Specialty Start Date End Date Kasia Loja NP [address] [place] [phone] PCP - General Nurse Practitioner 02/13/25 Emilie Hough CHW Community Health Worker Community Health Worker 04/04/24 documented as of this encounter
--- OUTSIDE RECORDS SUMMARY | 2025-02-13 18:12 | XMS_ITS | Encounter Summary ---
Author Organization [employer] Address [address] [place] [address] Care Team Providers Care Campus Coordinator Name Role Phone [place] Deborah Keen DNP Primary Care Provider + Emilie Hough CHW Unavailable Unavailab Kasia Huynh FACTORY ASSEMBLER Primary Care Provider [phone] Reason for Referral * Imaging (Routine) - Closed Specialty Diagnoses / Procedures Referred By Contac t Referred To Contact Radiology Diagnoses First trimester Procedures US OB <14 Weeks Early Nichol Tee MD [address] [place] [phone] Phone: tel: fax: Referral ID Status Reason Start Date Expiration Date Visits Re quested Visits Authorized [id number] Closed 04/03/2024 04/03/2025 1 1 Encounter Details Date Type Department Care Team (Late st Contact Info) Description 04/03/2024 Orders Only [facility] OB-Braid Pattern Setter [address] [place] [phone] Susie Chavira RN First trimester Social History Tobacco Use Types Packs/Day [...] of this encounter Plan of Treatment Scheduled Orders Name Type Priority Associated Diagnoses Orde r Schedule US OB <14 Weeks Early Imaging Routine First trimester Expected: 04/03/2024 (Approximate), Expires: 10/01/2024 documented as of this encounter Procedures Procedure Name Priority Date/Time Associated Diagnosis Comments HEMOGLOBINOPATHY FRACTIONATION CASCADE Routine 04/04/2024 4:52 PM EST First trimester HUMAN CHORIONIC GONADOTROPIN (HCG),BETA SUBUNIT, QUANT Routine 04/04/2024 4:52 PM EST First trimester CBC WITH AUTO DIFFERENTIAL Routine 04/04/2024 4:52 PM EST First trimester ABO GROUP AND RH TYPE Routine 04/04/2024 4:52 PM EST First trimester ANTIBODY SCREEN Routine 04/04/2024 4:52 PM EST First trimester HEMOGLOBIN A1C Routine 04/04/2024 4:52 PM EST First trimester documented in this encounter Results * Hemoglobinopathy Evaluation (04/04/2024 4:52 PM EST) Hgb F 0.0 0.0 - 2.0 % [facility] Hgb A 97.6 96.4 - 98.8 % [facility] 1 Hgb A2 2.4 1.8 - 3.2 % [facility] 1 Hgb S 0.0 0.0 % [facility] 1 Interpretation: [facility] Comment: Normal hemoglobin present; no hemoglobin variant or beta thalassemia identified. Note: Alpha thalassemia may not be detected by the Hgb Fractionation Lutz panel. If alpha thalassemia is suspected, [facility] offers Alpha-Thalassemia DNA Analysis (#[id number]). Blood Venous blood specimen / Unknown 04/04/2024 4:52 PM EST 04/04/2024 Narrative [facility] 1 - 04/06/2024 4:06 PM EST Performed at: 01 - [facility] [id number] Electrical Unit Rebuilder: Marleny Beverly MD, Phone: [phone] us Nichol Tee MD LAB BLOOD ORDERABLES Fin al Result [facility] * CBC auto differential (04/04/2024 4:52 PM EST) Pathologist [facility] White Blood Cell Count 9.4 4.3 - 10.3 K/mm3 [facility] 1 Red Blood Cell Count 4.54 4.20 - 5.40 K/mm3 [facility] 1 Hemoglobin 12.7 12.0 - 16.0 gm/dL [facility] 1 Hematocrit 39.5 37.0 - 47.0 % [facility] 1 MCV 87 83 - 101 fL [facility] 1 MCH 28.0 27.0 - 34.0 pg [facility] 1 MCHC 32.2 31.5 - 36.0 g/dL [facility] 1 RDW 13.3 11.7 - 15.4 % [facility] 1 Platelet Count 257 140 - 400 K/mm3 [facility] 1 Neutrophils 70 Not Estab. % [facility] 1 Lymphocytes 25 Not Estab. % [facility] 1 Monocytes 4 Not Estab. % [facility] 1 Eosinophils 1 Not Estab. % [facility] 1 Basophils 0 Not Estab. % [facility] 1 Absolute Neutrophils 6.5 1.4 - 7.0 x10E3/uL [facility] 1 Absolute Lymphocytes 2.4 0.7 - 3.1 x10E3/uL [facility] 1 Absolute Monocytes 0.3 0.1 - 0.9 x10E3/uL [facility] 1 Absolute Eosinophils 0.1 0.0 - 0.4 x10E3/uL [facility] 1 Absolute Basophils 0.0 0.0 - 0.2 x10E3/uL [facility] 1 Immature Granulocytes 0 Not Estab. % [facility] 1 Immature Grans (Abs) 0.0 0.0 - 0.1 x10E3/uL [facility] 1 Blood Venous blood specimen / Unknown 04/04/2024 4:52 PM EST 04/04/2024 Narrative [facility] 1 - 04/04/2024 8:05 PM EST Performed at: [address] [place] [id number] Electrical Unit Rebuilder: Kurt Ramos MD, Phone: [phone] us Nichol Tee MD LAB BLOOD ORDERABLES Fin al Result [facility] * Antibody screen (04/04/2024 4:52 PM EST) [facility] Antibody Screen Negative Negative [facility] 1 Blood Venous blood specimen / Unknown 04/04/2024 4:52 PM EST 04/04/2024 Narrative [facility] 1 - 04/05/2024 8:07 AM EST Performed at: [facility] [id number] Electrical Unit Rebuilder: Marleny Beverly MD, Phone: [phone] Nichol Tee MD LAB BLOOD ORDERABLES Fin al Result Performing Organization Address City/[facility]/ZIP Co de Phone Number [facility] * Human Chorionic Gonadotropin (hCG), Beta Subunit, Quantitative (04/04/2024 4:52 PM EST) [facility] hCG,Beta Subunit,Qnt,Seru m 6,393 mIU/mL [facility] 1 Comment: Female (Non-) 0 - 5 (Postmenopausal) 0 - 8 Female () Weeks of Gestation 3 6 - 71 4 10 - 750 5 883 - 1519 6 214 - 76273 7 6526 -755795 8 93846 -501863 9 05199 -961218 10 06793 -954167 12 20167 -506240 14 48960 - 05427 15 31080 - 33868 16 9040 - 56325 17 8175 - 21380 18 0252 - 85554 Eduardo ECLIA methodology Blood Venous blood specimen / Unknown 04/04/2024 4:52 PM EST 04/04/2024 Narrative [facility] 1 - 04/05/2024 8:07 AM EST Performed at: [facility] [id number] Electrical Unit Rebuilder: Marleny Beverly MD, Phone: [phone] Nichol Tee MD LAB BLOOD ORDERABLES Fin al Result Performing Organization Address City/[facility]/ZIP Co de Phone Number [facility] * Hemoglobin A1c (04/04/2024 4:52 PM EST) [facility] Hemoglobin A1c 5.2 4.0 - 5.6 % [facility] 1 Comment: Prediabetes: 5.7 - 6.4 Diabetes: >6.4 Glycemic control for adults with diabetes: <7.0 Blood Venous blood specimen / Unknown 04/04/2024 4:52 PM EST 04/04/2024 Narrative [facility] 1 - 04/04/2024 10:05 PM EST Performed at: [facility] [id number] Electrical Unit Rebuilder: Kurt Ramos MD, Phone: [phone] Nichol Tee MD LAB BLOOD ORDERABLES Fin al Result Performing Organization Address City/[facility] Co de Phone Number [facility] * ABO Group And RH Type (04/04/2024 4:52 PM EST) [facility] ABO Group A [facility] 1 Rh Factor Positive [facility] 1 Comment: Please note: Prior records for this patient's ABO / Rh type are not available for additional verification. Blood Venous blood specimen / Unknown 04/04/2024 4:52 PM EST 04/04/2024 Narrative [facility] 1 - 04/05/2024 8:07 AM EST Performed at: [facility] [id number] Electrical Unit Rebuilder: Marleny Beverly MD, Phone: [phone] Nichol Tee MD LAB BLOOD BANK TEST EVAN BRIGHT Final Result Performing Organization Address City/[facility]/ZIP Co de Phone Number [facility] 1 documented in this encounter Visit Diagnoses Diagnosis First trimester state, incidental documented in this encounter Care Teams Campus Coordinator Relationship Specialty Start Date End Date Deborah Rudd DNP PCP - General Family Medicine 08/29/23 02/12/25 Kasia Loja NP [address] [place] [address] PCP - General Nurse Practitioner 02/13/25 Emilie Hough, CHW Community Health Worker Community Health Worker 04/04/24 documented as of this encounter
--- OUTSIDE RECORDS SUMMARY | 2025-02-13 18:12 | XMS_ITS | Encounter Summary ---
Author Organization [employer] Address [address] [place] [address] Care Team Providers Care General Studies Program Chair Name Role Phone Tobin Deborah Keen DNP Primary Care Provider + Emilie Hough CHW Unavailable Unavailab Kasia Huynh TRIM SAWYER Primary Care Provider [phone] Encounter Details Date Type Department Care Team (Late st Contact Info) Description 10/15/2024 Abstract [facility] OB-Bookbinding Machine Operator [address] [place] [phone] Terrie Griffith MD [address] [place] [phone] Social History Tobacco Use Types Packs/Day Years [...] the past 12 months, has t he [employer], gas, oil or water company threatened to [...] on filedocumented in this encounter Care Teams General Studies Program Chair Relationship Specialty Start Date End Date Deborah Rudd DNP PCP - General Family Medicine 08/29/23 02/12/25 Kasia Loja NP [address] [place] [address] PCP - General Nurse Practitioner 02/13/25 Emilie Hough, CHW Community Health Worker Community Health Worker 04/04/24 documented as of this encounter
--- OUTSIDE RECORDS SUMMARY | 2025-02-13 18:12 | XMS_ITS | Encounter Summary ---
Author Organization [facility] Address [address] [place] [address] Care Team Providers Care Customs Compliance Director Name Role Phone Tobin Deborah Keen DNP Primary Care Provider + Emilie Hough CHW Unavailable Unavailab Kasia Huynh SURVEY RODMAN Primary Care Provider [phone] Encounter Details Date Type Department Care Team (Late st Contact Info) Description 04/03/2024 Orders Only [facility] OB-Electrical Prospecting Engineer [address] [place] [phone] Susie Chavira, DOT Social History Tobacco Use Types Packs/Day Years [...] on filedocumented in this encounter Care Teams Customs Compliance Director Relationship Specialty Start Date End Date Deborah Rudd DNP PCP - General Family Medicine 08/29/23 02/12/25 Kasia Loja NP [address] [place] [address] PCP - General Nurse Practitioner 02/13/25 Emilie Hough, CHW Community Health Worker Community Health Worker 04/04/24 documented as of this encounter
--- OUTSIDE RECORDS SUMMARY | 2025-02-13 18:12 | XMS_ITS | Encounter Summary ---
Author Organization [facility] Address [address] [place] [address] Care Team Providers Care Metal Finish Inspector Name Role Phone [facility] Primary Care Provider Encounter Details Date Type Department Care Team (Late st Contact Info) Description 06/24/2023 Documentation [facility] Case Management Department [address] [place] [phone] Karen Holland, RN Social History Tobacco Use Types Packs/Day [...] documented as of this encounter Functional Status documented as of this encounter Plan of Treatment Not on file documented as of this encounter Visit Diagnoses Not on filedocumented in this encounter Care Teams Metal Finish Inspector Relationship Specialty Start Date End Date [facility] [address] [place] [address] PCP - General Family Medicine 06/23/23 documented as of this encounter
--- OUTSIDE RECORDS SUMMARY | 2025-02-13 18:12 | XMS_ITS | Clinical Summary ---
Author Organization [facility] Address [address] [place] [address] 7 [place] [address] Care Team Providers Care Filler Mixer Name Role Phone Gianluca Emilie CHW Unavailable Unavailab Kasia Huynh INTELLIGENCE AGENT Primary Care Provider [phone] Allergies Active Allergy Reactions Criticality Noted Date Comments Pork Allergy Hives 04/04/2024 Medications diclofenac sodium 3 % gel Apply topically 2 times daily. 100 g 3 02/01/20 24 Active acetaminophen (Tylenol) 500 MG tablet Take 1,000 mg by mouth every 6 (six) hours if needed. 06/11/19 20 Active cholecalciferol (Vitamin D-3) 50 MCG (1999 UT) tablet Take 1 tablet by mouth Once per day. 04/20/19 24 Active Vit-Fe Fumarate-FA ( Vitamins) 28-0.8 MG tablet Take 1 tablet by mouth Once per day. 30 tablet 11 04/03/19 25 026 Active Blood Pressure kit 1 kit See administration instructions. 1 kit 04/04/19 25 Active Additional Information Patient not taking.Reported on 06/26/2024 calcium carbonate (Tums) 500 MG chewable tabletIndication s:Heartburn during in first trimester Chew 2 tablets (1,000 mg) Once per day. 180 tablet 2 05/08/19 25 Active polyethylene glycol, PEG, 3350 (MiraLax) 17 GM/SCOOP powderIndication s:Constipation, unspecified constipation type Take 17 g by mouth Once per day. 510 g 2 05/08/19 25 Active Additional Information Patient not taking.Reported on 06/26/2024 Aspirin Low Dose 81 MG EC tablet Take 1 tablet (81 mg) by mouth Once per day. 30 tablet 6 09/25/19 25 Active famotidine (Pepcid) 20 MG tabletIndication s:History of Helicobacter pylori infection Take 1 tablet (20 mg) by mouth 2 times daily. 90 tablet 3 10/03/19 25 Active magnesium oxide (Mag-Ox) 400 (240 Mg) MG tablet Take 1 tablet (400 mg) by mouth Once per day. 30 tablet 1 10/03/19 25 Active hydrocortisone 0.5 % creamIndications :Flexural eczema Apply topically 2 times daily. 28 g 10/17/19 25 Active Active Problems Problem Noted Date Diagnosed Date Request for sterilization 09/04/2024 Overview (09/04/2024): 09/04/24 Discussed tubal ligation is a permanent and irreversible procedure. Discussed options for LARC, such as IUD. Aware these are over 99% effective in preventing . Expresses certainty with desire to have permanent sterilization. Discussed risks and benefits. Consent reviewed and signed today. Aware she can change her mind at anytime as consent is not a binding agreement. No further questions or concerns. Pt provided with copy of consent and other copy sent to Katey Hahn MA to send to medical records. Maternal varicella, non-immune 04/06/2024 Overview (04/06/2024): Avoid infectious individuals, vaccinate . Supervision of high risk , antepartum 0 04/04/2024 Overview (10/16/2024): 23 y.o. NAJMA 11/28/2024, by ultrasound Continuity Provider: , OB Advocate: Emilie Meds: ASA, PNV, TUMS, famotidine OB Hx: G1- vag del at 38 wks in [place] (cannot remember name of hospital), G2- current [facility] Hx: NILM pap 08/10/23, next due 2026 PMH: Anemia, H. pylori - treated and tested negative afterwards, varicella, migraine PSH: tonsillectomy Social Hx: lives with and daughter, feels safe and respected Psychiatric Condition Screening and Monitoring PRISM Risk Level: Moderate Risk based on PMHS done on [insert date of intake] PSYCH Hx: none Complicated by: - BMI > 40 - food and transportation insecurity - hx NARAYAN -- clarify with pt if she still has snoring/apnea after her 06/23/23 tonsillectomy (if no more sx, then remove NARAYAN from problem list) - Varicella non immune - Hep B non immune -- resolved (series complete) Ultrasound dating: done at 9w by [facility] Anatomy scan: 07/12/24 no anomalies, anterior placenta, HUMPHREY wnl Other u/s: done at [facility]: Amniotic Fluid Volume: Labs: Blood type: A+, Ab: neg Genetics: NIPT done with inaccurate dating, redraw low risk-pt aware/CF neg/SMA neg/AFP neg HIV / HepC / HepBsAg / Syphilis / Chlam / GC: neg Rubella: immune Varicella: nonimmune Hg electrophoresis: normal Quanitferon: neg TSH: n/a A1C: 5.2% GDM Screen 24 wks: 143 3 Hour Glucola: wnl GBS Status 36-38 wks: Immunizations: Tdap: done 09/04/2024 Flu: 04/04 COVID: declined 04/04 Hep B (not immune): vaccinated x2- series complete Rhogam: n/a RSV vaccine (32-36.6wks Nov-Mar): Planning: [x] Expecting male [x] Wants circ: no [] Baby's provider: not sure; thinks somewhere near [place] [] FMLA Paperwork: [x] Crib: has [x] Car Seat: Picked up car seat on 10/11. YR [x] Feeding Intentions/Hx: both; breast and bottle - did not have milk last time; would like to talk to [] Labor Support/Plan: [x] PP Control: considering BTL; papers signed and scanned 09/04/24 [] PP PAP Indicated: [] PP Vaccines: Varicella Assessment & Plan (05/08/2024 2:57 PM EST): Problem list reviewed and updated Food insecurity 04/04/2024 Overview (04/04/2024): Refer to [facility] and [facility] at intake 04/04/24- [facility] paperwork completed, food bag provided. Task to OB advocate to refer to [employer]. Family history of deafness 04/04/2024 Overview (04/04/2024): Mom in law and relative born deaf and mute 04/04/24 Pt not interested in genetics referral Encounter for behavioral health screening 2024 Overview (09/04/2024): Psychiatric Condition Screening and Monitoring PRISM Review Flowsheet 04/04/2024 07/24/2024 [facility] Psych PMHS Review Flowsheet PRISM Risk Calculator Moderate Risk Moderate Risk Gestational Age/Week of (please type a whole number): 11.6 21 Depression (EPDS) Subsection: /30 0 0 Depression (EPDS) Subsection Interpretation Less consistent with depression Less consistent with depression Social Support Needs Subsection Score: ___/24 0 0 Social Support Needs Subsection Interpretation Low to Moderate need for social support detected; please see individual responses to determine which specific social needs are present and to what degree Low to Moderate need for social support detected; please see individual responses to determine which specific social needs are present and to what degree Anxiety (PASS) Subsection: /96 4 6 Anxiety (PASS) Subsection Interpretation Minimal anxiety Minimal anxiety Anxiety (PASS) Subsection: /87 4 6 Anxiety (PASS) Subsection Interpretation Minimal anxiety Minimal anxiety PRISM Moderate Risk Support Plan Perform PMHS at the following visits: [x] Intake [x] 20 weeks [] 34 weeks Obesity, Class III, BMI 40-49.9 (morbid obesity) 04/03/2024 Overview (10/16/2024): Plan for BMI>40: - A1c with intake labs 5.2% - Offer nutrition consult --> completed 09/25 - One-time consult with advance practice FM-OB provider --> Pt has had multiple visits with Dr Wilson. - Glucola at 24wks- 1hr elevated @ 143, 3 hr WNL - Growth scan at 32 (EFW 79% with AC 76%) & 36 wks (sched 11/01/24) - Weekly NST at 34+ wks Assessment & Plan (02/13/2025 4:13 PM EST): Currently seeing nonprofit fundraiser at [facility]. Placed referral for nutrition here due to proximity. Orders: Referral to Nutrition Therapy; Future Assessment & Plan (07/24/2024 5:57 PM EDT): Glucola next visit NARAYAN (obstructive sleep apnea) 06/23/2023 Overview (10/16/2024): Pt had tonsillectomy 06/23/2023 due to hypertrophic tonsillar obstruction causing NARAYAN with snoring and witnessed apneic event [ ] clarify with patient if she still has snoring/apnea after her tonsilectomy Resolved Problems Problem Noted Date Diagnosed Date Resolved Date Uterine size-date discrepanc y in second trimester 09/04/2024 02/13/2025 Overview (10/16/2024): 09/04/24 - S>D. Measuring approx 31cm at 27wks. Has 32 and 36wk growth scan scheduled. 10/11/24 (33w1d) - [facility] 79% with AC 76% [ ] 36 wk [facility] (sched 11/01) Nonimmune to hepatitis B virus 06/26/2024 10/16/2024 Overview (09/04/2024): Heplisav #1 given 06/26/24 Heplisave #2 given 09/04/2024 Series complete! Assessment & Plan (07/24/2024 5:57 PM EDT): Hepisav next visit History of migraine headaches 04/04/2024 04/04/2024 History of Helicobacter pylori infection 10/16/2024 Overview (05/28/2024): 2020. States she had it 2x. completed treatment Breath test neg 05/08/24 Assessment & Plan (05/08/2024 2:56 PM EST): Pt reports recurrent symptoms. Will re-test. Sent TUMS. Will follow up breath test. Encounters Date Type Department Care Team Description 02/13/2025 2:45 PM EST Office Visit [address] [address] Kasia Loja NP Healthcare maintenance (Primary Dx); Diabetes mellitus screening; Obesity, Class III, BMI 40-49.9 (morbid obesity) ([facility]); Encounter for immunization; Routine screening for STI (sexually transmitted infection); Sore throat 02/13/2025 Travel 02/12/2025 Telephone [facility] [address] [place] [address] Kasia Loja NP Chart Prep 01/03/2025 Telephone [facility] [address], [place] [id number] Carmella Castañeda MD from Last 3 Months Immunizations Immunization Administration Dates Next Due Hep B, adult 09/04/2024,06/26/2024 HepB-CpG 09/04/2024,06/26/2024 Influenza injectable quadriv alent preservative free 12/02/2021 Influenza, IIV3, injectable 04/04/2024, Influenza, Unspecified 01/14/2020 Influenza, seasonal, injecta ble, preservative free 02/13/2025,04/04/2024 Tdap 09/04/2024,11/04/2021,07/24/2019 Family History Medical History Relation Name Comments No Known Problems Daughter Leukemia Father No Known Problems Maternal Grandfather No Known Problems Maternal Grandmother Diabetes Mother Hypertension Mother No Known Problems Other No Known Problems Paternal Grandfather No Known Problems Paternal Grandmother Relation Name Status Comments Daughter Father Alive Maternal Grandfather Maternal Grandmother Mother Alive Other Paternal Grandfather Paternal Grandmother Social History Tobacco Use Types Packs/Day Years Used Date Smoking Tobacco: Never Passive Smoke Exposure: Never Smokeless Tobacco: Never Tobacco Cessation:Counseling Given: No Alcohol Use Standard Drinks/Week Comments Never 0 [...] file Not on file Not on file Last Filed Vital Signs [...] Mass Index 45.03 02/13/2025 3:10 PM EST Plan of Treatment Health Maintenance Due Date Last Done Comments Lipid Panel 1998 Family Planning (PISQ) 2013 HPV Vaccines (1 - 3-dose series) 2013 COVID-19 Vaccine ( season) 2024 11/28/2020, 11/07/2020 Alcohol/Substance Use Screening 02/13/2026 02/13/2025 Depression Screening 02/13/2026 02/13/2025, 02/14/20 Disability Screening 02/13/2026 02/13/2025 SDOH Screening 02/13/2026 02/13/2025 Tobacco Screening 02/13/2026 02/13/2025 Pap Smear 08/09/2026 08/10/2023, 07/20, 08/10/2023, Additional history exists DTaP/Tdap/Td Vaccines (4 - Td or Tdap) 09/04/2034 09/04/2024, 11/04/2021, 07/24/2019 Zoster Vaccines (1 of 2) 2048 RSV Patients and Patients Aged 60 years or older (1 - 1-dose 75+ series) 2073 Hepatitis C Screening Completed 04/04/2024 HIV Screening Completed 08/15/2024, 03/21, 07/05/2019 Hepatitis B Vaccines Completed 09/04/2024, 09/04/2024, 06/26/2024, Additional history exists Influenza Vaccine Completed 02/13/2025, , 04/04/2024, Additional history exists HIB Vaccines Aged Out No longer eligi ble based on patient's age to complete this topic Hepatitis A Vaccines Aged Out No long er eligible based on patient's age to complete this topic IPV Vaccines Aged Out No longer eligi ble based on patient's age to complete this topic Meningococcal B Vaccine Aged Out No l onger eligible based on patient's age to complete this topic Meningococcal Vaccine Aged Out No yenifer asher eligible based on patient's age to complete this topic Pneumococcal Vaccine: Pediatrics (0 to 5 Years) and At-Risk Patients (6 to 49) Years Aged Out No longer eligible based on patient's age to complete this topic RSV under 20 months Aged Out No longe r eligible based on patient's age to complete this topic Rotavirus Vaccines Aged Out No longer eligible based on patient's age to complete this topic Procedures Procedure Name Priority Date/Time Associated Diagnosis Comments POC BANUELOS ID NOW STREP A Routine 02/13/2025 4:04 PM EST Sore throat HIV P24 ANTIGEN/ANTIBODY WITH REFLEX TO CONFIRMATION Routine 08/15/2024 2:49 PM EDT Screening examination for infectious disease HEPATITIS C VIRUS (HCV) AB CASCADE TO QNT PCR & GENOTYP Routine 04/04/2024 4:53 PM EST Supervision of high risk , antepartum HEPATITIS B SURFACE AB QNT Routine 04/04/2024 4:53 PM EST Supervision of high risk , antepartum PAP SMEAR Routine 08/10/2023 12:00 AM EDT from Last 3 Months or Most Recently Relevant to Health Maintenance Results * POCT Rapid Strep A BANUELOS ID NOW (02/13/2025 4:04 PM EST) Rapid Strep A Screen Negative Negative, None Detected QC Media Lot # [id number] Lot# Expiration Date [id number] Swab 02/13/2025 4:04 PM EST Kasia Loja NP POINT OF CARE TEST ENTER/EDIT O RDERABLES Final Result * HIV p24 Antigen/Antibody With Reflex to Confirmation (08/15/2024 2:49 PM EDT) [facility] HIV Ab/p24 Ag Screen Non Reactive Non Reactive [facility] 1 Comment: HIV-1/HIV-2 antibodies and HIV-1 p24 antigen were NOT detected. There is no laboratory evidence of HIV infection. HIV Negative Blood Venous blood specimen / Unknown 08/15/2024 2:49 PM EDT 08/15/2024 Narrative [facility] 1 - 08/16/2024 10:05 AM EDT Performed at: [address] [place] [id number] Mate Chief: Marleny Beverly MD, Phone: [phone] Nichol Tee MD LAB BLOOD ORDERABLES Fin al Result Performing Organization Address [facility] de Phone Number [facility] 1 * Hepatitis C Virus (HCV) Antibody [place] to Quantitative PCR and Genotyping (04/04/2024 4:53 PM EST) [facility] HCV Ab Non Reactive Non Reactive [facility] 1 Blood Venous blood specimen / Unknown 04/04/2024 4:53 PM EST 04/04/2024 Narrative [facility] 1 - 04/05/2024 6:06 AM EST Performed at: [address] [place] [id number] Mate Chief: Marleny Beverly MD, Phone: [phone] Dana GARNETT LAB BLOOD ORDERABLES Final Result Performing Organization Address [facility] Co de Phone Number [facility] 1 * (ABNORMAL) Hepatitis B Surface Antibody, Quantitative (04/04/2024 4:53 PM EST) [facility] Hepatitis B Surf Ab Quant <3.5(L) Immunity>1 0 mIU/mL [facility] 1 Comment: Status of Immunity Anti-HBs Level Inconsistent with Immunity 0.0 - 10.0 Consistent with Immunity >10.0 Blood Venous blood specimen / Unknown 04/04/2024 4:53 PM EST 04/04/2024 Narrative [facility] 1 - 04/05/2024 6:06 AM EST Performed at: 01 - [facility] [address] [employer], [place] [id number] Mate Chief: Marleny Beverly MD, Phone: [phone] Dana Ramos DRAKE LAB BLOOD ORDERABLES Final Result [facility] 1 * Pap Smear (08/10/2023 12:00 AM EDT) Swab Historical Provider LAB CYTOLOGY ORDERABLES F inal Result Performing Organization Address City/[facility]/ZIP Co de Phone Number [facility] [address] [place] [address], from Last 3 Months or Most Recently Relevant to Health Maintenance Insurance [facility] Care Teams Filler Mixer Relationship Specialty Start Date End Date Kasia Loja NP [address] [place] [id number] PCP - General Nurse Practitioner 02/13/25 Emilie Hough, CHW Community Health Worker Community Health Worker 04/04/24
[2025-02-14 05:59] LABS: CT PCR Urine NOT DETECTED (Not Detect.); NG PCR Urine NOT DETECTED (Not Detect.)
== END 2025-02-13 18:09 | disposition home or self-care (01) ==
LOC: HO.HHCLNP 18:08
DX: Z20.2 Contact with and (suspected) exposure to infections with a predominantly sexual mode of transmission (principal)
CPT/HCPCS: 87491; 87591

== ENCOUNTER 2025-02-25 09:22 | Outpatient (REF) | payer MEDICAID, SELFPAY ==
[2025-02-25 11:40] LABS: MANUAL DIFF FLAG NO
[2025-02-25 11:53] LABS: Hematocrit 35.7 % (37.0-47.0); Hemoglobin 10.6 g/dl (12.0-16.0); Imm Gran Abs Auto 0.02 X10*3/uL (0.00-0.03); Imm Gran Pct Auto 0.4 % (0.0-0.4); Lymphocytes Absolute Auto 2.1 X10*3/uL (1.2-4.9); Mean Corpuscular HGB Conc 29.7 g/dl (31.0-35.0); Mean Corpuscular Hemoglobin 21.9 pg (27.0-33.0); Mean Corpuscular Volume 73.8 fL (80.0-98.0); NRBC Abs Auto 0.000 X10*3/uL (0.0-0.012); NRBC Pct Auto 0.0 /100WBC (0.0-0.2); Platelet Count 251 X10*3/uL (160-400); Red Blood Count 4.84 X10*6/uL (4.20-5.50); White Blood Count 5.2 X10*3/uL (4.8-10.8)
[2025-02-25 12:39] LABS: Alanine Aminotransferase 26 U/L (0-31); Albumin Level 3.9 g/dL (3.5-5.0); Alkaline Phosphatase 105 U/L (39-117); Anion Gap 13 (12-20); Aspartate Amino Transferase 29 U/L (5-31); Blood Urea Nitrogen 7 mg/dL (9-16); Calcium 8.9 mg/dL (8.4-10.2); Carbon Dioxide 24 mmol/L (22-29); Chloride 108 mmol/L (96-108); Cholesterol 116 mg/dL (<200); Estimated Glomerular Filt Rate > 60; HDL Cholesterol 30 mg/dL (>40); Potassium 3.7 mmol/L (3.3-5.1); Sodium 141 mmol/L (135-145); Total Protein 7.2 g/dL (6.5-8.0); Triglycerides 109 mg/dL (<150)
[2025-02-26 04:01] LABS: Syphilis Screen Nonreactive (Nonreactive)
[2025-02-26 04:48] LABS: HBc Num1 0.07 S/CO (0.00-0.79); HBsAGNum1 0.36 S/CO (0.00-0.99); HIV Num 1 0.16 S/CO (0.00-0.99); Hepatitis B Surface Antigen Negative (Negative); ~HepC Num1 0.09 S/CO (0.00-0.79); ~Hepatitis B Surface Antibody REACTIVE (Nonreactive); ~Hepatitis C Antibody Nonreactive (Nonreactive)
== END 2025-02-25 09:23 | disposition home or self-care (01) ==
LOC: HO.HHCL 09:22
DX: Z00.00 Encounter for general adult medical examination without abnormal findings (principal); Z11.3 Encounter for screening for infections with a predominantly sexual mode of transmission; Z13.1 Encounter for screening for diabetes mellitus; Z11.4 Encounter for screening for human immunodeficiency virus [HIV]; Z11.59 Encounter for screening for other viral diseases
CPT/HCPCS: 36415; 80053; 80061; 83036; 84443; 85025; 86704; 86706; 86780; 86803; 87340; 87389

== ENCOUNTER 2025-03-01 11:15 | Outpatient (REF) | payer MEDICAID, SELFPAY ==
[2025-03-01 14:14] LABS: MANUAL DIFF FLAG NO
[2025-03-01 14:24] LABS: Hematocrit 37.5 % (37.0-47.0); Hemoglobin 11.0 g/dl (12.0-16.0); Imm Gran Abs Auto 0.02 X10*3/uL (0.00-0.03); Imm Gran Pct Auto 0.3 % (0.0-0.4); Lymphocytes Absolute Auto 2.4 X10*3/uL (1.2-4.9); Mean Corpuscular HGB Conc 29.3 g/dl (31.0-35.0); Mean Corpuscular Hemoglobin 22.1 pg (27.0-33.0); Mean Corpuscular Volume 75.3 fL (80.0-98.0); NRBC Abs Auto 0.000 X10*3/uL (0.0-0.012); NRBC Pct Auto 0.0 /100WBC (0.0-0.2); Platelet Count 298 X10*3/uL (160-400); Red Blood Count 4.98 X10*6/uL (4.20-5.50); White Blood Count 6.4 X10*3/uL (4.8-10.8)
[2025-03-01 15:16] LABS: Iron 29 mcg/dL (30-160); Percent Iron Saturation 7 % (15-50); Total Iron Binding Capacity 437 mcg/dL (228-428); Unsaturated Iron Binding 408 ug/dL
[2025-03-01 15:17] LABS: Ferritin 8 ng/mL (10-122)
[2025-03-01 15:35] LABS: Folate 11.5 ng/mL (> or = 4.0); Vitamin B12 220 pg/mL (200-900)
== END 2025-03-01 11:16 | disposition home or self-care (01) ==
LOC: HO.HHCL 11:15
DX: Z13.0 Encounter for screening for diseases of the blood and blood-forming organs and certain disorders involving the immune mechanism (principal)
CPT/HCPCS: 36415; 82607; 82728; 82746; 83540; 85025